=== PATIENT | male | born 1975 | race Caucasian/White ===

== ENCOUNTER 2018-03-11 20:25 | Emergency (ER) | payer MEDICARE, MEDICAID ==
[~2018-03-11] VITALS: Ht 188 cm; Wt 61.8 kg
[~2018-03-11 20:25] MED LIST: DARU600T3 PO; DIVA250T PO; DIVA500T2 PO; EMTR1TAB8 PO; HIV MEDS; LEVE500T53 PO; RALT400T PO; RITO100C PO; [UNRECOGNIZED DRUG - CODE] PO
[2018-03-11 20:26] VITALS: BP 127/68
[2018-03-11] MEDS ORDERED: QUET400T PO (20:58)
== END 2018-03-11 22:30 | disposition home or self-care (01) ==
LOC: ED 22:29
DX: F31.9 Bipolar disorder, unspecified (principal); G40.901 Epilepsy, unspecified, not intractable, with status epilepticus; F20.9 Schizophrenia, unspecified; Z86.73 Personal history of transient ischemic attack (TIA), and cerebral infarction without residual deficits
CPT/HCPCS: 99281

== ENCOUNTER 2018-03-14 13:05 | Observation (INO) | payer MEDICARE, MEDICAID ==
[~2018-03-14] VITALS: Ht 185.4 cm; Wt 61.0 kg
[~2018-03-14 13:05] MED LIST changes: +QUET400T PO
[2018-03-14] MEDS ORDERED: LORazepam 1MG TABLET ONE (13:27)
[2018-03-14] MEDS ORDERED: ZIPRASIDONE 20 MG INJ IM ONE ×2 (13:27→13:30)
[2018-03-14] MEDS ORDERED: LORazepam 1MG TABLET PO ONE (13:30)
[2018-03-14 13:39] LABS: ALANINE AMINOTRANSFERASE 32 U/L (12-78); ALBUMIN 3.3 g/dL (3.4-5.0); ANION GAP 9 mmol/L (5-15); CALCIUM 8.8 mg/dL (8.5-10.1); CHLORIDE 100 mmol/L (98-107); CREATININE 1.23 mg/dL (0.7-1.3)
[2018-03-14 13:40] LABS: ACETAMINOPHEN < 2 mcg/mL (10-30)
[2018-03-14 13:42] LABS: ALKALINE PHOSPHATASE 135 U/L (45-117); BASOPHILS # (AUTO) 0.03 x10^3/uL (0-0.1); BASOPHILS % (AUTO) 1 % (0-1); BILIRUBIN,TOTAL 0.4 mg/dL (0.2-1.0); EOSINOPHILS % (AUTO) 0 % (1-7); LYMPHOCYTES # (AUTO) 0.66 x10^3/uL (1-3.4); LYMPHOCYTES % (AUTO) 21 % (22-44); MD NO; MEAN CORPUSCULAR HEMOGLOBIN 34.1 pg (27.5-34.5); MEAN CORPUSCULAR HGB CONC 34.4 g/dL (33.2-36.2); MEAN PLATELET VOLUME 6.6 fL (7.4-10.4); MONOCYTES # (AUTO) 0.52 x10^3/uL (0.2-0.8); MONOCYTES % (AUTO) 16 % (2-9); NEUTROPHILS # (AUTO) 1.97 x10^3/uL (1.8-6.8); NEUTROPHILS % (AUTO) 62 % (42-75); PLATELET COUNT 281 x10^3/uL (130-400); RED BLOOD COUNT 3.48 x10^6/uL (4.38-5.82); RED CELL DISTRIBUTION WIDTH 14.3 % (9.4-14.8); SALICYLATE LEVEL 3.2 mg/dL (2.8-20.0); TOTAL PROTEIN 7.1 g/dL (6.4-8.2)
[2018-03-14 15:16] LABS: MICROSCOPIC NOT IND
[2018-03-14 15:18] LABS: CULTURE INDICATED? NO
[2018-03-14] MEDS ORDERED: POTASSIUM CHLORIDE 20 MEQ TAB.ER.PRT PO ONE (15:30)
[2018-03-14 15:58] LABS: AMPHETAMINE SCREEN, URINE Negative (Negative); BARBITURATE SCREEN, URINE Negative (Negative); BENZODIAZEPINE SCREEN, URINE Negative (Negative); CANNABINOID SCREEN, URINE Positive (Negative); COCAINE SCREEN, URINE Negative (Negative); METHADONE SCREEN, URINE Negative (Negative); OPIATE SCREEN, URINE Negative (Negative)
[2018-03-14] MEDS ORDERED: ONDANSETRON ODT 4 MG PO PRN (17:00)
[2018-03-14] MEDS ORDERED: DOCUSATE 100 MG CAPSULE PO PRN (17:00)
[2018-03-14] MEDS ORDERED: BISACODYL 10 MG SUPP PR PRN (17:00)
[2018-03-14] MEDS ORDERED: ACETAMINOPHEN 325 MG TABLET PO PRN (17:00)
[2018-03-14] MEDS ORDERED: POLYETHYLENE GLYCOL 17 GM PACKET PO PRN (17:00)
[2018-03-14] MEDS ORDERED: ZIPRASIDONE 20MG CAPSULE PO PRN (17:00)
[2018-03-14] MEDS ORDERED: NICOTINE 21 MG/24 HR PATCH.TD24 ONE (17:15)
[2018-03-14] MEDS ORDERED: POTASSIUM CHLORIDE 20 MEQ TAB.ER.PRT ONE (17:15)
[2018-03-14] MEDS: NICOTINE 21 MG/24 HR PATCH.TD24 TD SCH (17:20)
[2018-03-14 18:43] VITALS: BP 117/75
[2018-03-14 20:22] VITALS: BP 119/78
[2018-03-14] MEDS: DIVALPROEX 500 MG TABLET.DR PO SCH (21:15)
[2018-03-15] MEDS ORDERED: POTASSIUM CHLORIDE 10 MEQ TABLET.ER PO SCH (08:00)
[2018-03-15 08:36] VITALS: BP 108/75
[2018-03-15] MEDS: DIVALPROEX 500 MG TABLET.DR PO SCH (08:46)
[2018-03-15] MEDS: NICOTINE 21 MG/24 HR PATCH.TD24 TD SCH (17:00)
== END 2018-03-15 18:06 ==
LOC: ED 13:38 → EDIP 15:32 → 2N 18:14
PROVIDERS: ADMIT Internal Medicine; ATTEND Internal Medicine
DX: R62.7 Adult failure to thrive (principal); D64.9 Anemia, unspecified; E87.1 Hypo-osmolality and hyponatremia; E87.6 Hypokalemia; F20.9 Schizophrenia, unspecified; F31.9 Bipolar disorder, unspecified; F33.1 Major depressive disorder, recurrent, moderate; G40.909 Epilepsy, unspecified, not intractable, without status epilepticus; F12.90 Cannabis use, unspecified, uncomplicated; F17.210 Nicotine dependence, cigarettes, uncomplicated; Z86.73 Personal history of transient ischemic attack (TIA), and cerebral infarction without residual deficits; Z91.19 Patient's noncompliance with other medical treatment and regimen
CPT/HCPCS: 36415; 80053; 80164; 80307; 80329; 81003; 85025; 96372; 99285; G0378; J3486; G0480

== ENCOUNTER 2018-03-17 07:40 | Observation (INO) | payer MEDICARE, MEDICAID ==
[~2018-03-17] VITALS: Ht 180.3 cm; Wt 75.0 kg
[2018-03-17 08:32] LABS: MEAN CORPUSCULAR HEMOGLOBIN 33.6 pg (27.5-34.5); MEAN CORPUSCULAR HGB CONC 34.2 g/dL (33.2-36.2); MEAN CORPUSCULAR VOLUME 98.1 fL (81-97); MEAN PLATELET VOLUME 6.6 fL (7.4-10.4); PLATELET COUNT 173 x10^3/uL (130-400); RED BLOOD COUNT 3.63 x10^6/uL (4.38-5.82); RED CELL DISTRIBUTION WIDTH 13.9 % (9.4-14.8)
[2018-03-17 08:43] LABS: ALBUMIN 2.8 g/dL (3.4-5.0); ANION GAP 4 mmol/L (5-15); CALCIUM 8.2 mg/dL (8.5-10.1); CHLORIDE 108 mmol/L (98-107); SALICYLATE LEVEL 2.9 mg/dL (2.8-20.0)
[2018-03-17 08:44] LABS: CREATININE 0.98 mg/dL (0.7-1.3)
[2018-03-17 08:46] LABS: ACETAMINOPHEN < 2 mcg/mL (10-30)
[2018-03-17 08:54] LABS: MD YES
[2018-03-17 08:55] LABS: BANDS%(MANUAL) 7 % (0-7); EOS#(MANUAL) 0.03 x10^3/uL (0.0-0.4); EOS% (MANUAL) 1 % (1-7); LYMPH#(MANUAL) 1.09 x10^3/uL (1-3.4); LYMPHS% (MANUAL) 39 % (22-44); MONOS#(MANUAL) 0.11 x10^3/uL (0.3-2.7); MONOS% (MANUAL) 4 % (2-9); SEG#(MANUAL) 1.37 x10^3/uL (1.8-6.8); SEGS% (MANUAL) 49 % (42-75)
[2018-03-17 08:57] LABS: <PLATELET ESTIMATE> ADEQUATE; <PLT MORPHOLOGY> NORMAL PLT MORPH; <RBC MORPHOLOGY> NORMAL
[2018-03-17 12:57] LABS: INTERNATIONAL NORMALIZED RATIO 0.93 (0.93-1.1); PROTHROMBIN TIME 9.6 Seconds (9.6-11.5)
[2018-03-17] MEDS ORDERED: ACETAMINOPHEN 325 MG TABLET PO PRN (14:00)
[2018-03-17] MEDS ORDERED: LORazepam 1MG TABLET PO PRN (14:00)
[2018-03-17] MEDS ORDERED: BACITRACIN ZINC OINT 500U/GM, 0.9 GM ONE (17:36)
[2018-03-17 18:17] VITALS: BP 114/77
[2018-03-17 19:17] VITALS: BP 117/72
[2018-03-17] MEDS: DARUNAVIR ETHANOLATE 600 MG HOMEMEDPO SCH (20:00)
[2018-03-17] MEDS: ETRAVIRINE 200 MG HOMEMEDPO SCH (20:02)
[2018-03-17 20:53] LABS: AMPHETAMINE SCREEN, URINE Negative (Negative); BARBITURATE SCREEN, URINE Negative (Negative); BENZODIAZEPINE SCREEN, URINE Negative (Negative); CANNABINOID SCREEN, URINE Negative (Negative); COCAINE SCREEN, URINE Negative (Negative); METHADONE SCREEN, URINE Negative (Negative); OPIATE SCREEN, URINE Negative (Negative)
[2018-03-17] MEDS ORDERED: TEMPLATE NON-FORMULARY MED. (Quetiapine Fumarate** 400 MG) PO SCH (21:00)
[2018-03-17] MEDS: RITONAVIR 100 MG TABLET PO SCH (21:14)
[2018-03-18 06:00] LABS: BASOPHILS # (AUTO) 0.01 x10^3/uL (0-0.1); BASOPHILS % (AUTO) 0 % (0-1); EOSINOPHILS # (AUTO) 0.02 x10^3/uL (0-0.4); EOSINOPHILS % (AUTO) 1 % (1-7); LYMPHOCYTES # (AUTO) 1.33 x10^3/uL (1-3.4); LYMPHOCYTES % (AUTO) 43 % (22-44); MD NO; MEAN CORPUSCULAR HEMOGLOBIN 33.2 pg (27.5-34.5); MEAN CORPUSCULAR HGB CONC 33.3 g/dL (33.2-36.2); MEAN CORPUSCULAR VOLUME 99.9 fL (81-97); MONOCYTES # (AUTO) 0.31 x10^3/uL (0.2-0.8); MONOCYTES % (AUTO) 10 % (2-9); NEUTROPHILS # (AUTO) 1.41 x10^3/uL (1.8-6.8); NEUTROPHILS % (AUTO) 46 % (42-75); PLATELET COUNT 162 x10^3/uL (130-400); RED BLOOD COUNT 3.84 x10^6/uL (4.38-5.82); RED CELL DISTRIBUTION WIDTH 13.8 % (9.4-14.8)
[2018-03-18] MEDS: DARUNAVIR ETHANOLATE 600 MG HOMEMEDPO SCH (08:00)
[2018-03-18] MEDS ORDERED: EMTRICITABINE/TENOFOVIR 200 MG/300 MG TABLET PO SCH (09:00)
[2018-03-18] MEDS: ETRAVIRINE 200 MG HOMEMEDPO SCH (09:00)
[2018-03-18] MEDS: RITONAVIR 100 MG TABLET PO SCH (09:00)
[2018-03-18 09:09] VITALS: BP 106/64
== END 2018-03-18 14:20 ==
LOC: ED 10:56 → EDIP 12:28 → INTOOBSV 12:28 → 2N 17:48
PROVIDERS: ADMIT Internal Medicine; ATTEND Internal Medicine
DX: D72.819 Decreased white blood cell count, unspecified (principal); E44.0 Moderate protein-calorie malnutrition; D61.1 Drug-induced aplastic anemia; F17.210 Nicotine dependence, cigarettes, uncomplicated; G40.909 Epilepsy, unspecified, not intractable, without status epilepticus; Z86.73 Personal history of transient ischemic attack (TIA), and cerebral infarction without residual deficits
CPT/HCPCS: 36415; 80048; 80307; 80329; 82040; 82140; 85025; 85610; 93005; 99285; G0378; G0480

== ENCOUNTER 2018-04-05 14:18 | Emergency (ER) | payer MEDICARE, MEDICAID ==
[~2018-04-05] VITALS: Ht 193 cm; Wt 64.0 kg
[2018-04-05 14:25] VITALS: BP 97/55
== END 2018-04-05 15:36 | disposition home or self-care (01) ==
LOC: ED 14:48
DX: T23.222D Burn of second degree of single left finger (nail) except thumb, subsequent encounter (principal); T31.0 Burns involving less than 10% of body surface; Z72.9 Problem related to lifestyle, unspecified; Z86.73 Personal history of transient ischemic attack (TIA), and cerebral infarction without residual deficits; X19.XXXD Contact with other heat and hot substances, subsequent encounter; Y93.89 Activity, other specified; Y99.8 Other external cause status; Y92.009 Unspecified place in unspecified non-institutional (private) residence as the place of occurrence of the external cause
CPT/HCPCS: 99283

== ENCOUNTER 2018-04-08 07:48 | Emergency (ER) | payer MEDICARE, MEDICAID ==
[~2018-04-08] VITALS: Ht 193 cm; Wt 67.0 kg
[2018-04-08 08:13] VITALS: BP 126/81
[2018-04-08] MEDS ORDERED: SILVER SULF. CRM 1% , 25GM ONE (08:25)
[2018-04-08] MEDS ORDERED: SILVER SULF. CRM 1% , 25GM TP ONE (08:30)
== END 2018-04-08 11:05 | disposition home or self-care (01) ==
LOC: ED 09:10
DX: T23.202D Burn of second degree of left hand, unspecified site, subsequent encounter (principal); T25.231D Burn of second degree of right toe(s) (nail), subsequent encounter; F31.9 Bipolar disorder, unspecified; Z86.73 Personal history of transient ischemic attack (TIA), and cerebral infarction without residual deficits; X08.8XXD Exposure to other specified smoke, fire and flames, subsequent encounter
CPT/HCPCS: 99283

== ENCOUNTER 2018-04-14 02:48 | Emergency (ER) | payer MEDICARE, MEDICAID ==
[~2018-04-14] VITALS: Ht 193 cm; Wt 95.0 kg
[2018-04-14 03:31] VITALS: BP 102/62
== END 2018-04-14 03:33 | disposition home or self-care (01) ==
LOC: ED 02:53
DX: S60.512D Abrasion of left hand, subsequent encounter (principal); Z72.9 Problem related to lifestyle, unspecified; G40.909 Epilepsy, unspecified, not intractable, without status epilepticus; F17.200 Nicotine dependence, unspecified, uncomplicated; Z86.73 Personal history of transient ischemic attack (TIA), and cerebral infarction without residual deficits; B20 Human immunodeficiency virus [HIV] disease; X58.XXXD Exposure to other specified factors, subsequent encounter
CPT/HCPCS: 99283

== ENCOUNTER 2018-04-16 08:45 | Emergency (ER) | payer MEDICARE, MEDICAID ==
[~2018-04-16] VITALS: Ht 182.9 cm; Wt 60.0 kg
[2018-04-16 09:57] LABS: BASOPHILS # (AUTO) 0.04 x10^3/uL (0-0.1); BASOPHILS % (AUTO) 1 % (0-1); EOSINOPHILS # (AUTO) 0.02 x10^3/uL (0-0.4); EOSINOPHILS % (AUTO) 0 % (1-7); LYMPHOCYTES # (AUTO) 0.41 x10^3/uL (1-3.4); LYMPHOCYTES % (AUTO) 5 % (22-44); MD NO; MEAN CORPUSCULAR HGB CONC 33.6 g/dL (33.2-36.2); MEAN CORPUSCULAR VOLUME 95.2 fL (81-97); MEAN PLATELET VOLUME 7.3 fL (7.4-10.4); MONOCYTES # (AUTO) 0.55 x10^3/uL (0.2-0.8); MONOCYTES % (AUTO) 7 % (2-9); NEUTROPHILS % (AUTO) 88 % (42-75); PLATELET COUNT 165 x10^3/uL (130-400); RED BLOOD COUNT 3.53 x10^6/uL (4.38-5.82); RED CELL DISTRIBUTION WIDTH 13.7 % (9.4-14.8)
[2018-04-16 10:04] LABS: ALANINE AMINOTRANSFERASE 19 U/L (12-78); ALBUMIN 2.4 g/dL (3.4-5.0); ANION GAP 11 mmol/L (5-15); CALCIUM 8.3 mg/dL (8.5-10.1); CHLORIDE 97 mmol/L (98-107); CREATININE 1.18 mg/dL (0.7-1.3); SALICYLATE LEVEL 7.2 mg/dL (2.8-20.0)
[2018-04-16 10:06] LABS: ACETAMINOPHEN < 2 mcg/mL (10-30)
[2018-04-16 10:13] LABS: ALKALINE PHOSPHATASE 94 U/L (45-117); BILIRUBIN,TOTAL 0.9 mg/dL (0.2-1.0); TOTAL PROTEIN 6.4 g/dL (6.4-8.2)
[2018-04-16] MEDS ORDERED: QUETIAPINE 100MG TABLET ONE (10:21)
[2018-04-16] MEDS ORDERED: QUETIAPINE 100MG TABLET PO ONE (10:30)
[2018-04-16] MEDS ORDERED: DIVALPROEX 500 MG TABLET.DR PO ONE (10:30)
[2018-04-16] MEDS ORDERED: EMTRICITABINE/TENOFOVIR 200 MG/300 MG TABLET PO ONE (10:30)
[2018-04-16] MEDS ORDERED: POTASSIUM CHLORIDE 20 MEQ TAB.ER.PRT ONE (11:05)
[2018-04-16] MEDS ORDERED: POTASSIUM CHLORIDE 20 MEQ TAB.ER.PRT PO ONE (11:30)
[2018-04-16 13:10] LABS: ANION GAP 10 mmol/L (5-15); CALCIUM 8.3 mg/dL (8.5-10.1); CHLORIDE 103 mmol/L (98-107); CREATININE 1.07 mg/dL (0.7-1.3)
[2018-04-16 13:53] VITALS: BP 135/76
== END 2018-04-16 14:18 | disposition home or self-care (01) ==
LOC: ED 10:46
DX: F20.9 Schizophrenia, unspecified (principal); E86.0 Dehydration; E87.6 Hypokalemia; E87.1 Hypo-osmolality and hyponatremia; F31.9 Bipolar disorder, unspecified; Z86.73 Personal history of transient ischemic attack (TIA), and cerebral infarction without residual deficits; F17.200 Nicotine dependence, unspecified, uncomplicated; Z79.899 Other long term (current) drug therapy
CPT/HCPCS: 36415; 80048; 80053; 80307; 80329; 85025; 99284; G0480